=== PATIENT | female | born 1950 | race Two or more races ===

== ENCOUNTER → 2019-04-07 | Day surgery (SDC) | payer OTHER ==
[~2019-04-07] MED LIST: ASA81 MG PO; DARIFENACIN ER15 MG PO; DOXAZOSIN MESYLA2 MG PO; LIPITOR20 MG PO; LOSARTAN-HCTZ1 EAC1 PO; SINGULAIR10 MG PO; SYNTHROID175 MCG PO; ZYRTEC10 M3 PO
== END | disposition home or self-care (01) ==
LOC: ADM 04-05 11:15 → CIR.AMB 05:50
DX: M67.843 Other specified disorders of tendon, right hand (principal)